=== PATIENT | male | born 1995 ===

== ENCOUNTER 2025-04-17 12:15 | Emergency (ER) | payer OTHER ==
[2025-04-17 18:52] VITALS: BP 138/82; PULSE 98
== END 2025-04-17 13:20 | disposition home or self-care (01) ==
LOC: CC.ED 12:15
DX: R07.89 Other chest pain (principal); Z91.018 Allergy to other foods; V49.40XA Driver injured in collision with unspecified motor vehicles in traffic accident, initial encounter
CPT/HCPCS: 71101-LT; 72170; 99283; 99284